=== PATIENT | female | born 1950 | race Caucasian/White ===

== ENCOUNTER 2023-05-25 17:16 | Emergency (ER) | payer MEDICARE, BC, SELFPAY ==
[2023-05-25] VITALS (12 sets, daily range): BP systolic 160–187; BP diastolic 66–116; PULSE 59–68; RESP 20; TEMP 36.5; O2SAT 96–100; BMI 26.6
--- NOTE | 2023-05-25 17:29 | ED_ITS ---
HPI - General Adult General Time Seen by Provider: 17:29 Date Seen: 05/25/23 Chief complaint: Back Injury/Pain Stated complaint: Back pain L, chest burning Time Seen by Provider: 05/25/23 17:27 History of Present Illness HPI narrative: This is a pleasant 73-year-old female with a past medical history listed to include kidney stones, colon polyps, diverticulitis, ischemic colitis, anxiety/depression, low vitamin-D, history of constipation who presents to the ER today with her for evaluation. She has multiple concerns. She is here because she is having pain in her low back, left flank and some pain radiating down the back of her left leg. She is also having some burning discomfort in her chest at night for the past few days, she has also had foul- smelling and frequent urination for the past week or so. She does not have any long-term trouble with her back. She does recall that she has been doing a lot of [employer] work and gardening recently. 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 No particularly heavy objects or any particular episode that caused injury to her back. She also stumbled and fell about a month ago when she was mowing. In that context she has been having pain affecting her low back, more to the left of midline then to the right for the past few weeks, perhaps 2 weeks or so. The pain has been radiating down her left buttock, left hamstring and sometimes down to the bottom of her left foot. She has been seeing her chiropractor and getting massages and manipulations but is not getting better. Her chiropractor told her that if her back does not get better she may need to ?do something else. ? I think this means, her chiropractor was not playing she may need to see her doctor and get an MRI. She has not had any previous trouble with her back or any previous lumbar spine operations. No urinary incontinence or bowel disturbance. No numbness or weakness in her legs. No fevers She had used Tylenol yesterday with some partial relief. She is reluctant to take too much Tylenol because she does not want to further upset her stomach. She has been taking ibuprofen for her back and had taken a few doses, 800 mg each, few days ago. She started having some burning discomfort in her epigastrium that would radiate up into her chest at night. It has been bothering her into her chest at night for the past 3 nights. She is not having any burning chest pain during the day. No other chest pain or squeezing. No shortness of breath. No cough. No pain in her upper back. She also notes that for the past week or so she has had urinary frequency and foul smelling malodorous urine. She has not had any fevers or chills. Bowel movements normal. No vomiting or nausea. She has a history of frequent UTIs and takes cranberry supplements to try to prevent them. She also wonders if her back a could be a side effect of Crestor. Related Data Home Medications Medication Instructions Recorded Confirmed cholecalciferol (vitamin D3) 125 125 mcg PO DAILY 05/25/23 05/25/23 mcg (5,000 unit) tablet (Vitamin D3) rosuvastatin 5 mg tablet 5 mg PO QPM 05/25/23 05/25/23 sertraline 50 mg tablet 50 mg PO DAILY 05/25/23 05/25/23 Previous Rx's Medication Instructions Recorded methocarbamol 500 mg tablet 500 mg PO TID PRN spasm #15 tabs 05/25/23 Allergies Allergy/AdvReac Type Severity Reaction Status Date / Time No Known Drug Allergies Allergy Verified 05/25/23 17:31 Exam Narrative: Exam Narrative: Constitutional: Appears well-developed and well-nourished. Alert. Conversant. Non toxic. HENT: Head: Atraumatic. Nose: Nose normal. Mouth/Throat: Oral mucosa is clear and moist. no trismus. Pharynx normal. Tonsils symmetric. No tonsillar enlargement, erythema, or exudate. Eyes: Conjunctivae normal. EOM normal. Pupils equal, round, and reactive to light. No scleral icterus. Neck: Normal range of motion. Neck supple. No tracheal deviation present. Cardiovascular: Normal rate, regular rhythm. No gallop. No friction rub. No murmur heard. Symmetric radial artery pulses Pulmonary/Chest: Effort normal. No stridor. No respiratory distress. No wheezes. No rales. No rhonchi . No tenderness. Abdominal: Soft. No distension. No mass. No tenderness. No rebound. No guarding. Musculoskeletal: RUE: Normal range of motion. No tenderness. No deformity LUE: Normal range of motion. No tenderness. No deformity RLE: Normal range of motion. No edema. No tenderness. No deformity LLE: Normal range of motion. No edema. No tenderness. No deformity Normal inspection of her back. No midline tenderness or step-off or the thoracic or lumbar spine. Mildly tender over the left posterior pelvis and left lumbar paraspinous muscle. Mild left CVA tenderness. No rash. No shingles. No bruising. No erythema. Lymph: No cervical adenopathy. Neurological: Alert and oriented to person, place, and time. Normal strength. CN II-VII intact. No sensory deficit. GCS eye subscore is 4. GCS verbal subscore is 5. GCS motor subscore is 6. Normal coordination Sensory: Normal light touch sensation bilaterally on the anteromedial thigh (L3), medial malleolus (L4), dorsal first web space (L5), lateral malleolus (S1). Strength: 5/5 strength hip flexors (L3) on the rig ht and left 5/5 strength in the quadriceps (L4) on t he right and left 5/5 strength in the tibialis anterior 5/5 strength in the EHL (L5) on the righ t and left 5/5 strength in the gastrocnemius (S1) o n the right and left 5/5 strength in the hamstring on the rig ht and left DTRs: symmetric in the patella (2/4) and in the Achilles tendons. Negative straight leg raise bilaterally. Skin: Skin is warm and dry. No rash noted. No pallor. Normal capillary refill. Psychiatric: Normal mood. Normal affect. Const: Vital Signs, click to edit/add: Vital Signs - 24 hr 05/25/23 17:25 05/25/23 18:35 05/25/23 18:53 Temperature 97.7 F Pulse Rate 68 62 Pulse Rate [Pulse Oximeter] 67 Respiratory Rate 20 20 Blood Pressure 164/88 H 161/116 H Blood Pressure [Ri ght Upper Arm] 187/96 H Pulse Oximetry 100 96 96 Oxygen Delivery Me thod Room Air 05/25/23 18:54 05/25/23 19:00 05/25/23 19:02 Temperature Pulse Rate 59 L 62 59 L Pulse Rate [Pulse Oximeter] Respiratory Rate Blood Pressure 171/66 H Blood Pressure [Ri ght Upper Arm] Pulse Oximetry 100 97 97 Oxygen Delivery Me thod 05/25/23 19:15 05/25/23 19:30 05/25/23 19:32 Temperature Pulse Rate 68 61 63 Pulse Rate [Pulse Oximeter] Respiratory Rate Blood Pressure 171/97 H Blood Pressure [Ri ght Upper Arm] Pulse Oximetry 96 97 97 Oxygen Delivery Me thod 05/25/23 19:33 05/25/23 20:02 Temperature Pulse Rate 59 L Pulse Rate [Pulse Oximeter] Respiratory Rate Blood Pressure 160/88 H Blood Pressure [Ri ght Upper Arm] Pulse Oximetry 97 Oxygen Delivery Me thod Course Vital Signs Vital signs: Initial Vital Signs Temperature 97.7 F 05/25/23 17:25 Temperature Source Temporal Artery Scan 05/25/23 17:25 Pulse Rate 67 05/25/23 17:25 Pulse Rhythm Regular 05/25/23 17:25 Respiratory Rate 20 05/25/23 17:25 Blood Pressure 187/96 H 05/25/23 17:25 Blood Pressure Mean 126 H 05/25/23 17:25 Pulse Oximetry 100 05/25/23 17:25 Oxygen Delivery Method Room Air 05/25/23 17:25 Vital Signs Temperature 97.7 F 05/25/23 17:25 Pulse Rate 67 05/25/23 17:25 Respiratory Rate 20 05/25/23 17:25 Blood Pressure 187/96 H 05/25/23 17:25 Pulse Oximetry 100 05/25/23 17:25 Oxygen Delivery Method Room Air 05/25/23 17:25 Temperature 97.7 F 05/25/23 17:25 Pulse Rate 59 L 05/25/23 19:33 Respiratory Rate 20 05/25/23 18:35 Blood Pressure 160/88 H 05/25/23 20:02 Pulse Oximetry 97 05/25/23 19:33 Oxygen Delivery Method Room Air 05/25/23 17:25 Medical Decision Making MDM Narrative Medical decision making narrative: This is a pleasant 73-year-old female with a complex presentation to the ER. 1. She has been having pain affecting her low back and radiating down her left hamstring and the back of her left lower leg. This is been present for the past couple of weeks. It is not responding to ibuprofen or chiropractic manipulation. No recent fall to suggest risk for trauma or compression fracture pelvic fracture. Symptoms are suggestive for possible sciatica or lumbar radiculopathy. She does not have any detectable neurologic deficit, reflex asymmetry, weakness. No bowel or bladder disturbance. No history of malignancy. She is not immunosuppressed. No clear red flags to indicate that she needs emergent MRI of her lumbar spine. Discussed with her that she may need MRI in the near future as an outpatient for further workup if she fails to respond to conservative measures. She and her agree. CT scan stone protocol was obtained because she is having left flank pain and shows small intrarenal stones but no ureteral stones or signs of obstructing uropathy. No other acute pathology in the abdomen or pelvis. No clear evidence for any lumbar spine disease. Discussed with the patient that MRI would be much more sensitive to look for bulging discs and pinched nerve then a noncontrast CT. Prescription for Robaxin provided. Discussed addiction/sedation precautions. 2. She has also been having pain in her left flank for the past week or so and associated with this foul-smelling urine and urinary frequency. She has a history of frequent previous kidney stones requiring lithotripsy. Stone protocol CT is negative for stones.. Urinalysis looks good showing no pyuria, negative nitrite, negative leukocyte esterase. No hematuria. kidney function is normal . 3. She had been taking a lot of ibuprofen for her low back pain and about 3 nights ago began to have some burning discomfort in her epigastrium and chest. This is been present only at night for the past 3 days. We suspect that this is probably related to gastritis or esophagitis from her and said. Consider possible atypical presentation of ACS. Screening EKG shows prolonged QT but no definite ischemia. Troponin is is normal 4. Triage blood pressure was elevated 187/96. Follow-up blood pressure remains elevated but trending down to 160/90. Discussed with the patient and her . She has no previous diagnosis of hypertension. At this point no sign of acute end-organ damage. Suspect this is likely secondary to pain/frustration with her doctor's office. She will follow up for outpatient blood pressure monitoring and initiate blood pressure treatment if needed. 5. EKG was obtained to screen for cardiac ischemia, even though without chest pain was probably due to esophagitis from NSAID. EKG does show a mildly prolonged QT interval. She is not on any medications that would clearly cause prolonged QT. discussed prolonged QT with the patient and . They will follow-up for a repeat EKG and their doctor's office within the next couple week s. Potassium and electrolytes normal. No clear cause identified at this time. If persistently prolonged we will have to avoid QT prolonging medications or do further workup. Lab Data Labs: Lab Results 05/25/23 05/25/23 Range/Units 17:40 18:15 WBC 6.94 (4.50-11.00) K/uL RBC 4.92 (4.00-5.20) m/uL Hgb 14.3 (12.0-16.0) gm/dL Hct 44.1 (33.0-51.0) % MCV 90 (80-100) fL MCH 29 (26-34) pg MCHC 32 (32-36) gm/dL RDW Coeff of Bandar 12.5 (11.5-15.5) % Plt Count 285 (140-440) K/uL Neut % (Auto) 50.6 (42.0-72.0) % Lymph % (Auto) 37.5 (20-44) % [place] % (Auto) 6.8 (0.0-11.0) % Eos % (Auto) 4.5 (0.0-7.0) % Baso % (Auto) 0.6 (0.0-3.0) % Neut # (Auto) 3.52 (1.7-7.0) K/uL Lymph # (Auto) 2.60 (0.90-2.90) K/uL [place] # (Auto) 0.50 (0.00-0.90) K/UL Eos # (Auto) 0.31 (0.00-0.50) K/uL Baso # (Auto) 0.04 (0.00-0.30) K/uL Abs Immat Gran (auto) 0.00 (0.00-0.30) K/uL Imm/Tot Granulo (auto) 0.0 % Sodium 140 (135-149) mmol/L Potassium 3.9 (3.6-5.1) mmol/L Chloride 104 (96-114) mmol/L Carbon Dioxide 27 (20-32) mmol/L Anion Gap 9 (7-15) mEq/L BUN 15 (7-30) mg/dL Creatinine 0.7 (0.5-1.5) mg/dL Estimated Creat Clear 44.56 Estimated GFR 92 ml/min Glucose 98 (60-115) mg/dL Calcium 9.4 (8.4-10.6) mg/dL Total Bilirubin 0.9 (0.1-1.5) mg/dL AST 35 (12-35) U/L ALT 28 (4-35) U/L Alkaline Phosphatase 92 (40-150) U/L Troponin I < 0.01 L (0.01-0.04) ng/mL Total Protein 7.7 (6.0-8.3) g/dL Albumin 4.7 (3.3-5.0) g/dL Lipase 139 (23-300) U/L Urine Color Yellow (Yellow) Urine Appearance Clear (Clear) Urine pH 7.0 (5.0-8.5) Ur Specific [place] 1.010 (1.000-1.030) Urine Protein Negative (Negative) Urine Glucose (UA) Negative (Negative) Urine Ketones Negative (Negative) Urine Blood Trace-intact A (Negative) Urine Nitrite Negative (Negative) Urine Bilirubin Negative (Negative) Urine Urobilinogen 0.2 (0.2-1.0) Ur Leukocyte Esterase Negative (Negative) Urine RBC 0-2 (0-2) Urine WBC 0-2 (0-5) Ur Squamous Epith Cells Few (None-Few) Urine Bacteria Few A (None) Imaging Data CT scan - abdomen: Attestation: I have reviewed the pertinent imaging results. Radiologist's impression: FINDINGS: Lower chest: Unremarkable. Liver: Normal in size and attenuation. No suspicious masses. Gallbladder and bile ducts: No stones or inflammation. No biliary dilatation. Pancreas: Unremarkable. No mass or inflammation. Spleen: Normal in size. No masses. Adrenal glands: Normal in size. No nodules. Kidneys, Ureters, and Bladder: Small bilateral nonobstructing nephroliths, the largest measuring 5 mm within the left kidney. Unremarkable ureters. Normal bladder. GI tract: Unremarkable. Normal in caliber. No sign of inflammation. The appendix is not clearly visualized; however, there are no inflammatory changes in the right lower quadrant. Vasculature: Abdominal aorta is normal in caliber. Lymph nodes: No lymphadenopathy. Peritoneum/Abdominal Wall: Unremarkable. No free air or significant free fluid. Pelvis: Unremarkable. No pelvic masses. Bones: Unremarkable for age. IMPRESSION: Small bilateral nonobstructing nephroliths. No evidence for obstructive uropathy. No other evidence for an acute process within the abdomen and pelvis. ECG Data Attestation: I personally reviewed and interpreted this ECG as follows: Interpretation: Normal sinus rhythm . Rate 61 PA 182 QRS axis normal axis. No pathologic Q-waves. ST segment/T wave: No ST segment elevation or depression. QTc: Prolonged. 483 Discharge Plan Discharge Clinical Impression: Flank pain, Prolonged QT interval, Low back pain radiating down leg, Chest pain Patient Disposition: Home, Self-Care Condition: Stable Instructions: Chest Pain (DC), Lumbar Radiculopathy (ED) Additional Instructions: 1. For your back pain/left leg pain. We are concerned that this could represent a pinched nerve in your low back. Please follow-up with your regular doctor as soon as possible. You may need an MRI to get a better picture of her low back, if her pain is not resolved. Into you can follow-up with her doctor it is okay to keep working with a chiropractor. Use Tylenol no more than 1000 mg every 6 hours if needed for pain. Limit ibuprofen because that can cause stomach upset and acid fleming. If your back pain gets worse or if you have worsening pain or numbness or weakness down your leg, come back to the ER right away 2. For your chest pain. At this point we do not see any signs of a heart attack. I suspect that your chest pain could be related to acid fleming because of the ibuprofen you have been taking lately. Monitor carefully and if you get worse come back to the ER right away. 3. Your EKG tonight does not show any sign of a heart attack. It does show that you have a prolonged QT interval. Talk to your doctor about this and get a follow-up EKG within 2 weeks. You will need to avoid medications in the future that can further prolonged your QT. 4. Your blood pressure is elevated. I suspect this is related to pain. Please have your doctor's office recheck your blood pressure within 2 weeks. If it is persistently elevated, you may need to start on some blood pressure medicine. 5. Your urine sample does not show any sign of a bladder infection tonight. 6. Use caution with muscle relax her. This can cause drowsiness and dizziness. Do not operate machinery or drive a car if you have taken a muscle relaxer within 6 hours. Prescriptions: New methocarbamol 500 mg tablet 500 mg PO TID PRN (Reason: spasm) Qty: 15 0RF No Action sertraline 50 mg tablet 50 mg PO DAILY rosuvastatin 5 mg tablet 5 mg PO QPM cholecalciferol (vitamin D3) [Vitamin D3] 125 mcg (5,000 unit) tablet 125 mcg PO DAILY Follow Up/Referrals: Kat El MD [Staff Physician] - Stand Alone Forms: [employer] Info Instructions
--- NOTE | 2023-05-25 18:04 | CRLHL7_ITS ---
For Patients: As a result of the Century Cures Act, medical imaging exams and procedure reports are released immediately into your electronic medical record. You may view this report before your referring provider. If you have questions, please contact your health care provider. INDICATION: Left flank pain. TECHNIQUE: CT abdomen and pelvis without contrast. Permanently recorded images are archived. COMPARISON: CT abdomen and pelvis 09/07/2018. FINDINGS: Lower chest: Unremarkable. Liver: Normal in size and attenuation. No suspicious masses. Gallbladder and bile ducts: No stones or inflammation. No biliary dilatation. Pancreas: Unremarkable. No mass or inflammation. Spleen: Normal in size. No masses. Adrenal glands: Normal in size. No nodules. Kidneys, Ureters, and Bladder: Small bilateral nonobstructing nephroliths, the largest measuring 5 mm within the left kidney. Unremarkable ureters. Normal bladder. GI tract: Unremarkable. Normal in caliber. No sign of inflammation. The appendix is not clearly visualized; however, there are no inflammatory changes in the right lower quadrant. Vasculature: Abdominal aorta is normal in caliber. Lymph nodes: No lymphadenopathy. Peritoneum/Abdominal Wall: Unremarkable. No free air or significant free fluid. Pelvis: Unremarkable. No pelvic masses. Bones: Unremarkable for age. IMPRESSION: Small bilateral nonobstructing nephroliths. No evidence for obstructive uropathy. No other evidence for an acute process within the abdomen and pelvis. Please note that all CT scans at this facility use dose modulation, iterative reconstruction, and/or weight-based dosing when appropriate to reduce radiation dose to as low as reasonably achievable. Dictated by Bienvenido Aguilera MD @ 05/25/2023 7:52:59 PM (Electronically Signed)
[2023-05-25] MEDS: ACETAMINOPHEN 500 MG TABLET 1000 MG PO (18:21)
[2023-05-25 18:22] LABS: Basophils Absolute Auto 0.04 K/uL (0.00-0.30); Basophils Percent Auto 0.6 % (0.0-3.0); Eosinophils Absolute Auto 0.31 K/uL (0.00-0.50); Eosinophils Percent Auto 4.5 % (0.0-7.0); Hematocrit 44.1 % (33.0-51.0); Hemoglobin* 14.3 gm/dL (12.0-16.0); Lymphocytes Percent Auto 37.5 % (20-44); Mean Corpuscular HGB Conc 32 gm/dL (32-36); Mean Corpuscular Hemoglobin 29 pg (26-34); Mean Corpuscular Volume 90 fL (80-100); Monocytes Percent Auto 6.8 % (0.0-11.0); Neutrophils Absolute Auto 3.52 K/uL (1.7-7.0); Neutrophils Percent Auto 50.6 % (42.0-72.0); Platelet Count* 285 K/uL (140-440); RDW Coefficient of Variation % 12.5 % (11.5-15.5); Red Blood Count 4.92 m/uL (4.00-5.20); White Blood Count* 6.94 K/uL (4.50-11.00)
[2023-05-25 18:22] LABS: Appearance Urine Clear (Clear); Bilirubin Urine Negative (Negative); Blood Urine Trace-intact (Negative); Color Urine Yellow (Yellow); Glucose Urine Negative (Negative); Ketones Urine Negative (Negative); Leukocyte Esterase Urine Negative (Negative); Nitrite Urine Negative (Negative); Protein Urine Negative (Negative); Urobilinogen Urine 0.2 (0.2-1.0)
[2023-05-25 18:24] LABS: Slide Review Reflex No
[2023-05-25 18:32] LABS: Bacteria Urine Few; RBC Urine 0-2 (0-2); Squamous Epithelial Cell Urine Few (None-Few); WBC Urine 0-2 (0-5)
[2023-05-25 18:41] LABS: Albumin* 4.7 g/dL (3.3-5.0); Chloride* 104 mmol/L (96-114); Potassium* 3.9 mmol/L (3.6-5.1); Sodium* 140 mmol/L (135-149)
[2023-05-25 18:43] LABS: Bilirubin Total* 0.9 mg/dL (0.1-1.5); Creatinine* 0.7 mg/dL (0.5-1.5); Est. Creatinine Clearance* 44.56; Estimated Glomerular Filt Rate 92 ml/min
[2023-05-25 18:44] LABS: Alanine Aminotransferase* 28 U/L (4-35); Alkaline Phosphatase* 92 U/L (40-150); Anion Gap 9 mEq/L (7-15); Aspartate Amino Transferase* 35 U/L (12-35); Blood Urea Nitrogen* 15 mg/dL (7-30); Carbon Dioxide* 27 mmol/L (20-32); Glucose* 98 mg/dL (60-115); Lipase* 139 U/L (23-300); Total Protein* 7.7 g/dL (6.0-8.3)
[2023-05-25 18:45] LABS: Calcium* 9.4 mg/dL (8.4-10.6)
[2023-05-25 18:59] LABS: Troponin I* < 0.01 ng/mL (0.01-0.04)
[2023-05-25] MEDS: CYCLOBENZAPRINE HCL 10 MG TABLET PO (20:28)
== END 2023-05-25 20:34 | disposition home or self-care (01) ==
PROVIDERS: Emergency Provider Emergency Medicine; PCP Family Medicine
DX: R07.9 Chest pain, unspecified (principal); R10.9 Unspecified abdominal pain; M54.50 Low back pain, unspecified; R94.31 Abnormal electrocardiogram [ECG] [EKG]
CPT/HCPCS: 36415; 74176; 80053; 81001; 83690; 84484; 85025; 87086; 93005; 99284; 99285; A9270

== ENCOUNTER 2024-09-05 11:56 | Outpatient (CLI) | payer MEDICARE, BC, SELFPAY | END 2024-09-05 11:57 | disposition home or self-care (01) | LOC: NFLDREF 09-09 03:26 | PROVIDERS: PCP Family Medicine; Referring Provider Family Medicine; Visit Provider Nurse Practitioner Family | DX: R82.90 Unspecified abnormal findings in urine (principal) | CPT/HCPCS: 87086 ==

== ENCOUNTER 2025-01-06 12:26 | Outpatient (CLI) | payer MEDICARE, BC, SELFPAY | END 2025-01-06 12:27 | disposition home or self-care (01) | LOC: NFLDREF 01-10 00:52 | PROVIDERS: PCP Family Medicine; Referring Provider Family Medicine | DX: N30.01 Acute cystitis with hematuria (principal); B96.20 Unspecified Escherichia coli [E. coli] as the cause of diseases classified elsewhere | CPT/HCPCS: 87086 ==

== ENCOUNTER 2025-01-16 11:05 | Outpatient (CLI) | payer MEDICARE, BC, SELFPAY | END 2025-01-16 11:06 | disposition home or self-care (01) | LOC: NFLDREF 01-20 16:39 | PROVIDERS: PCP Family Medicine; Referring Provider Family Medicine; Visit Provider Physician Assistant | DX: N39.0 Urinary tract infection, site not specified (principal); B96.20 Unspecified Escherichia coli [E. coli] as the cause of diseases classified elsewhere | CPT/HCPCS: 87086 ==